=== PATIENT | female | born 1980 | race Caucasian/White ===

== ENCOUNTER 2020-07-07 05:29 | Emergency (ER) | payer OTHER, SELFPAY ==
--- NOTE | ~2020-07-07 | XR_ITS ---
EXAMINATION: XR foot LT min 3V DATE: 07/07/2020 06:38 INDICATION: Left foot pain TECHNIQUE: Dorsoplantar, lateral, and 2 oblique views of the left foot were obtained. COMPARISON: None. FINDINGS: There is dorsal soft tissue swelling of the foot. No acute fracture, dislocation, or sublux ation is identified. There appear to be changes of prior fracture of the fifth proximal phalanx. The joint spaces are normal. IMPRESSION: 1. Dorsal soft tissue swelling of the foot without acute osseous abnormality. Reviewed, dictated and finalized at location [facility]. [facility] [employer]
[2020-07-07 05:34] VITALS: BP 131/82; PULSE 108; RESP 18; TEMP 36.4; O2SAT 100
[2020-07-07] MEDS: IBUPROFEN 600 MG TABLET PO (06:09)
--- NOTE | 2020-07-07 06:17 | ED_ITS ---
HPI - Extremity Injury (Lower) General Chief Complaint: Extremity Injury, Lower Stated Complaint: My foot is broken Time Seen by Provider: 07/07/20 05:51 History of Present Illness HPI Narrative: Patient is a 40-year-old female who presents ER with left foot pain. Last night during a sweet 15 birthday alliance party she dropped a tool box on her left foot. She started bleeding. She is able to ambulate without issue. This morning she woke up and she has been unable to bear weight due to pain. There is swelling over the dorsum of the foot. No numbness or tingling. No pain to the ankle. No additional concerns. Related Data Allergies Allergy/AdvReac Type Severity Reaction Status Date / Time Sulfa (Sulfonamide Allergy Nausea and Verified 07/07/20 05:39 Antibiotics) Vomiting Review of Systems Musculoskeletal: Musculoskeletal: Denies arthralgias and Denies joint swelling Comments: Left foot pain/swelling Integumentary/Breasts: Comments: Abrasion dorsum of the foot Neurologic: Denies focal weakness and Denies numbness PMFSH Past Medical History Medical History (Updated 07/07/20 @ 06:53 by Ga Ramirez MD) Aortic aneurysm Surgical History Surgical History (Updated 07/07/20 @ 06:19 by Ga Ramirez MD) No history of previous surgery Social History Social History (Updated 07/07/20 @ 06:19 by Ga Ramirez MD) Smoking status: Current every day smoker Exam Narrative: Exam Narrative: GENERAL: Well-appearing, well-nourished, and in no acute distress. HEART: Regular rate and rhythm. Normal peripheral pulses. EXTREMITIES: Focused exam of the left foot shows swelling over the dorsum of the foot. Range of motion intact at the ankles and toes. Sensation intact. Normal pulses. Tenderness over the midfoot. SKIN: Warm, dry, abrasion dorsum left foot. NEURO: Alert and oriented x3. PSYCH: Normal mood and affect. Course Vital Signs Vital signs: Vital Signs Temperature 97.6 F 07/07/20 05:34 Pulse Rate 108 H 07/07/20 05:34 Respiratory Rate 18 07/07/20 05:34 Blood Pressure 131/82 07/07/20 05:34 Pulse Oximetry 100 07/07/20 05:34 Temperature 97.6 F 07/07/20 05:34 Pulse Rate 108 H 07/07/20 05:34 Respiratory Rate 18 07/07/20 05:34 Blood Pressure 131/82 07/07/20 05:34 Pulse Oximetry 100 07/07/20 05:34 MDM - Extremity Injury (Lower) Imaging Data My impression: Left foot x-ray: No acute fracture. Discharge Plan Discharge Clinical Impression: Contusion of foot Patient Disposition: Home, Self-Care Condition: Stable Instructions: Foot Contusion (ED), R.I.C.E. Treatment (ED) Additional Instructions: Return to the ER if you have chest pain or shortness of breath, you have redness of the foot, you are draining pus from the wound, you have additional concerns. Prescriptions: New ibuprofen 800 mg tablet 800 mg PO TID Qty: 20 RF: 0 Follow-up/Referrals: UNKNOWN,DOCTOR [Primary Care Provider] - 1 Week
[2020-07-07 07:10] VITALS: BP 116/76; PULSE 96; RESP 16; O2SAT 97
== END 2020-07-07 07:10 | disposition home or self-care (01) ==
PROVIDERS: Emergency Provider Emergency Medicine
DX: S90.32XA Contusion of left foot, initial encounter (principal); F17.200 Nicotine dependence, unspecified, uncomplicated; W20.8XXA Other cause of strike by thrown, projected or falling object, initial encounter
CPT/HCPCS: 73630; 99283; A9270